=== PATIENT | male | born 1980 | race African-American/Black ===

== ENCOUNTER 2016-07-15 18:48 | Emergency (ER) | payer BC, OTHER ==
--- NOTE | 2016-07-15 19:40 | ERRECORD ---
[facility] EMERGENCY RECORD HPI EXTREMITY (19:30 [facility]) CHIEF COMPLAINT: Patient presents for evaluation of swelling, to the left foot. HISTORIAN: History provided by patient, 36M presents with complaints of left foot swelling that he noticed today. Has had a new pair of workboots lately. Family is concerned it is related to his DM as he doesn't check his sugar often. LOCATION: Symptoms are localized, most severe in the left foot. TIME COURSE: Patient unable to describe onset of symptoms. ROS (19:32 [facility]) CONSTITUTIONAL: Negative constitutional review of systems, Historian denies chills, denies fever. ENT: Negative ears, nose, throat review of systems, Historian denies rhinorrhea, denies sore throat. CARDIOVASCULAR: Negative cardiovascular review of systems, Historian denies chest pain, reports edema, denies palpitations. very mild LLE edema over dorsum of foot. RESPIRATORY: Negative respiratory review of systems, Historian denies cough, denies shortness of breath. GI: Negative gastrointestinal review of systems, Historian denies abdominal pain, denies constipation, denies diarrhea, denies nausea, denies vomiting. MUSCULOSKELETAL: Negative musculoskeletal review of systems, Historian denies back pain, denies fall, denies injury, denies neck pain. SKIN: Negative skin review of systems, Historian denies rash, denies skin changes. NEUROLOGIC: Negative neurologic review of systems, Historian denies headache. PAST MEDICAL HISTORY (19:24 EMAT) MEDICAL HISTORY: Notes: diabetes. MALE SURGICAL HISTORY: Patient has no surgical history. PSYCHIATRIC HISTORY: No previous psychiatric history. SOCIAL HISTORY: Patient denies alcohol use, Patient denies drug use, Patient has no smoking history. FAMILY HISTORY: Family istory is not significant. KNOWN ALLERGIES lisinopril: Reaction: Anaphylaxis, Severity: Moderate, Source: Patient None CURRENT MEDICATIONS metFORMIN: TABLET, EXTENDED RELEASE 24 HR : Strength - 1,000 mg : ORAL Patient Dose: Unknown. (18:59 EMAT) amLODIPine: TABLET : Strength - 5 mg : ORAL &a-1R&a+25V*p+0X*s3547P*c202B*c15G*c2P*p-0X&a-25V&a+1R Name: Rebecca Tang : 1980 M36 MedRec: [id number] AcctNum: [id number] Prepared: Dionna Jul 15, 2016 19:42 by Interface Page 1 of 3 pMD [facility] EMERGENCY RECORD Patient Dose: Unknown. (18:59 EMAT) hydrochlorothiazide: TABLET : Strength - 25 mg : ORAL Patient Dose: Unknown. (19:00 EMAT) simvastatin: TABLET : Strength - 40 mg : ORAL Patient Dose: Unknown. (19:00 EMAT) VITAL SIGNS VITAL SIGNS: BP: 144/93, Pulse: 79, Resp: 18, Temp: 98.1 (Oral), Pain: 0, O2 sat: 96 on Room Air, Time: 07/15/2016 18:53. (18:53 EMAT) Pulse: 70, Resp: 18, Pain: 0, O2 sat: 98 on r/a, Time: 07/15/2016 19:27. (19:27 EMAT) PHYSICAL EXAM (19:32 [facility]) CONSTITUTIONAL: Vital signs reviewed, Patient afebrile, Pulse normal, Blood pressure normal, Respiratory rate normal, Patient appears non toxic, Patient appears pain free, Patient alert and oriented to person, place and time. NECK: Neck exam normal, Neck exam included findings of normal range of motion, Trachea midline, no meningeal signs, no cervical adenopathy, no tenderness. RESPIRATORY CHEST: Respiratory and chest exam normal, Respiratory exam included findings of no respiratory distress, Breath sounds clear. CARDIOVASCULAR: Cardiovascular assessment normal, Cardiovascular exam included findings of heart rate regular rate and rhythm, Heart sounds normal. ABDOMEN MALE: Abdominal exam included findings of abdomen nontender, Bowel sounds normal, no distension, no mass, no pulsatile masses, no peritoneal signs, no rigidity, no guarding, no rebound, Rovsing's sign absent. BACK: Back exam normal, Back exam included findings of normal inspection, range of motion normal, no tenderness. LOWER EXTREMITY: Lower extremity exam included findings of inspection abnormal, Range of motion normal, Motor strength normal, Sensation intact, Posterior tibial pulse normal, Pedal pulse normal, Valentin's negative, distal pulses intact, capillary refill less than 2 seconds, distal motor intact, distal sensory intact, Edema present, to the left lower extremity, +1, very mild LLE edema over dorsum of left foot. NEURO: Neuro exam normal, Neuro exam findings include patient oriented to person, place and time, Speech normal, Gait normal. SKIN: Skin exam normal, Skin exam included findings of skin warm, dry, and normal in color, no rash. DOCTOR NOTES (19:[address] [facility]) TEXT: patient presented with concern for LLE foot swelling. No calf tenderness, nothing concerning for DVT or heart/kidney etiology in history or on exam. Monofilament exam normal. Likely &a-1R&a+25V*p+0X*i4893J*c202B*c15G*c2P*p-0X&a-25V&a+1R Name: Rebecca Tang : 1980 M36 MedRec: [id number] AcctNum: [id number] Prepared: Dionna Jul 15, 2016 19:42 by Interface Page 2 of 3 pMD [facility] EMERGENCY RECORD secondary to compressive shoes at work with excess time spent standing. No further workup necessary. encouraged closer blood glucose monitoring. PATIENT STATUS: Patient has improved since arrival to emergency department. PATIENT PLAN: The patient will be discharged, The patient will follow up with primary care physician. PROBLEM LIST No recorded problems DIAGNOSIS (19:[address] [facility]) FINAL: PRIMARY: LOCALIZED EDEMA. PRESCRIPTION No recorded prescriptions DISPOSITION PATIENT: Disposition Type: Discharge, Disposition: *Discharge Home. (19:15 [facility]) Patient left the department. (19:28 EMAT) Back: EMAT=STEPHANIE Garcia, Cristino [facility]=MD Beatrice, Dion &a-1R&a+25V*p+0X*r1316V*c202B*c15G*c2P*p-0X&a-25V&a+1R Name: Rebecca Tang : 1980 M36 MedRec: [id number] AcctNum: [id number] Prepared: Dionna Jul 15, 2016 19:42 by Interface Page 3 of 3 pMD MTDD
--- NOTE | 2016-07-15 19:45 | PICIS ---
[facility] EMERGENCY RECORD TRIAGE ([place] Jul 15, 2016 18:58 EMAT) TRIAGE NOTES: started today. Pt w/ hx of diabetes. ([place] Jul 15, 2016 18:58 EMAT) PATIENT: NAME: Rebecca Tang, AGE: 36, GENDER: male, : Sat 1980, TIME OF GREET: SatJul 15, 2016 18:48, PREFERRED LANGUAGE: [place], ETHNICITY: Not or , ECODE BILLING MAP: [facility], SSN: [id number], Zip Code: [address], KG WEIGHT: 108.86 (est.), PHONE: , , , PERSON ID: [id number], PCP: DO JENKINS KRISTEL. ([place] Jul 15, 2016 18:58 EMAT) COMPLAINT: foot swelling. ([place] Jul 15, 2016 18:58 EMAT) ADMISSION: URGENCY: 3 Urgent, ADMISSION SOURCE: Home, TRANSPORT: CAR, BED: TRIAGE. ([place] Jul 15, 2016 18:58 EMAT) ASSESSMENT: Assessment: lrft foot swelling, Location: started today. (19:01 EMAT) PAIN: No complaint of pain. (19:01 EMAT) IMMUNIZATIONS: Flu vaccine not up to date, Tetanus not up to date, Pneumococcal vaccine not up to date. (19:01 EMAT) SIRS SCORING: Heart Rate 55-109 (0), Temp range 96.8-101.1 (0), respiratory rate 12-24 (0), Mental Status altered: no (0), Total SIRS Score 0, Infection or Suspected Infection: No. (19:01 EMAT) PROVIDERS: TRIAGE NURSE: Cristino Garcia RN. ([place] Jul 15, 2016 18:58 EMAT) VITAL SIGNS: BP 144/93, Pulse 79, Resp 18, Temp 98.1, (Oral), Pain 0, O2 Sat 96, on Room Air, Time 07/15/2016 18:53. (18:53 EMAT) KNOWN ALLERGIES lisinopril: Reaction: Anaphylaxis, Severity: Moderate, Source: Patient None CURRENT MEDICATIONS metFORMIN: TABLET, EXTENDED RELEASE 24 HR : Strength - 1,000 mg : ORAL Patient Dose: Unknown. (18:59 EMAT) amLODIPine: TABLET : Strength - 5 mg : ORAL Patient Dose: Unknown. (18:59 EMAT) hydrochlorothiazide: TABLET : Strength - 25 mg : ORAL Patient Dose: Unknown. (19:00 EMAT) simvastatin: TABLET : Strength - 40 mg : ORAL Patient Dose: Unknown. (19:00 EMAT) VITAL SIGNS VITAL SIGNS: BP: 144/93, Pulse: 79, Resp: 18, Temp: 98.1 (Oral), Pain: 0, O2 sat: 96 on Room Air, Time: 07/15/2016 18:53. (18:53 EMAT) Pulse: 70, Resp: 18, Pain: 0, O2 sat: 98 on r/a, Time: 07/15/2016 19:27. &a-1R&a+25V*p+0X*j8202K*c202B*c15G*c2P*p-0X&a-25V&a+1R Name: Rebecca Tang : 1980 M36 MedRec: [id number] AcctNum: [id number] Prepared: Dionna Jul 15, 2016 19:42 by Interface Page [address] [facility] EMERGENCY RECORD (19:27 EMAT) NURSING ASSESSMENT: FOCUSED (19:10 EMAT) CONSTITUTIONAL: Patient arrives ambulatory, Gait steady, History obtained from patient, Patient appears comfortable, Patient cooperative, Patient alert, Oriented to person, place and time, Skin warm, Skin dry, Skin normal in color, Mucous membranes pink, Mucous membranes moist, Patient is well-groomed. PAIN: denies. EYES: Focused eye assessment finding include pupils equally round and reactive to light. NEURO: Focused neuro assessment findings include patient alert, cooperative, No facial droop noted, Speech coherent. GCS: Eye opening: (4) - Spontaneous, Verbal: (5) - Oriented/conversive, Motor: (6) - Obeys commands/Spontaneous, GCS Total: 15. RESPIRATORY: Focused respiratory assessment findings include breath sounds clear. ABDOMEN: Focused abdominal assessment findings include abdomen soft. GENITOURINARY: Focused genitourinary assessment not applicable. MUSCULOSKELETAL: Focused musculoskeletal assessment findings include normal range of motion, Notes: c/o left foot swelling. no edema noted. no deformity. sensation intact. pulses intact. LACERATION: Focused laceration assessment not applicable. SAFETY: Side rails up, Cart/Stretcher in lowest position, Family at bedside, Call light within reach, Hospital ID band on. NURSING PROCEDURE: DISCHARGE NOTE (19:27 EMAT) DISCHARGE: Patient discharged to home, ambulating without assistance, family driving, accompanied by //partner, Summary of Care printed/ provided, Patient requested and was provided an electronic copy of Discharge Instructions, Discharge instructions given to patient, Simple or moderate discharge teaching performed, Above person(s) verbalized understanding of discharge instructions and follow-up care. VITAL SIGNS: Pulse: 70, Resp: 18, Pain: 0, O2 sat: 98, on: r/a. HPI EXTREMITY (19:30 [facility]) CHIEF COMPLAINT: Patient presents for evaluation of swelling, to the left foot. HISTORIAN: History provided by patient, 36M presents with complaints of left foot swelling that he noticed today. Has had a new pair of workboots lately. Family is concerned it is related to his DM as he doesn't check his sugar often. LOCATION: Symptoms are localized, most severe in the left foot. TIME COURSE: Patient unable to describe onset of symptoms. ROS (19:32 [facility]) CONSTITUTIONAL: Negative constitutional review of systems, &a-1R&a+25V*p+0X*y2391N*c202B*c15G*c2P*p-0X&a-25V&a+1R Name: Rebecca Tang : 1980 M36 MedRec: [id number] AcctNum: [id number] Prepared: Dionna Jul 15, 2016 19:42 by Interface Page [address] [facility] EMERGENCY RECORD Historian denies chills, denies fever. ENT: Negative ears, nose, throat review of systems, Historian denies rhinorrhea, denies sore throat. CARDIOVASCULAR: Negative cardiovascular review of systems, Historian denies chest pain, reports edema, denies palpitations. very mild LLE edema over dorsum of foot. RESPIRATORY: Negative respiratory review of systems, Historian denies cough, denies shortness of breath. GI: Negative gastrointestinal review of systems, Historian denies abdominal pain, denies constipation, denies diarrhea, denies nausea, denies vomiting. MUSCULOSKELETAL: Negative musculoskeletal review of systems, Historian denies back pain, denies fall, denies injury, denies neck pain. SKIN: Negative skin review of systems, Historian denies rash, denies skin changes. NEUROLOGIC: Negative neurologic review of systems, Historian denies headache. PAST MEDICAL HISTORY (19:24 EMAT) MEDICAL HISTORY: Notes: diabetes. MALE SURGICAL HISTORY: Patient has no surgical history. PSYCHIATRIC HISTORY: No previous psychiatric history. SOCIAL HISTORY: Patient denies alcohol use, Patient denies drug use, Patient has no smoking history. FAMILY HISTORY: Family istory is not significant. PHYSICAL EXAM (19:32 [facility]) CONSTITUTIONAL: Vital signs reviewed, Patient afebrile, Pulse normal, Blood pressure normal, Respiratory rate normal, Patient appears non toxic, Patient appears pain free, Patient alert and oriented to person, place and time. NECK: Neck exam normal, Neck exam included findings of normal range of motion, Trachea midline, no meningeal signs, no cervical adenopathy, no tenderness. RESPIRATORY CHEST: Respiratory and chest exam normal, Respiratory exam included findings of no respiratory distress, Breath sounds clear. CARDIOVASCULAR: Cardiovascular assessment normal, Cardiovascular exam included findings of heart rate regular rate and rhythm, Heart sounds normal. ABDOMEN MALE: Abdominal exam included findings of abdomen nontender, Bowel sounds normal, no distension, no mass, no pulsatile masses, no peritoneal signs, no rigidity, no guarding, no rebound, Rovsing's sign absent. BACK: Back exam normal, Back exam included findings of normal inspection, range of motion normal, no tenderness. LOWER EXTREMITY: Lower extremity exam included findings of inspection abnormal, Range of motion normal, Motor strength normal, Sensation intact, Posterior tibial pulse normal, Pedal pulse &a-1R&a+25V*p+0X*c5435F*c202B*c15G*c2P*p-0X&a-25V&a+1R Name: Rebecca Tang : 1980 M36 MedRec: [id number] AcctNum: [id number] Prepared: Dionna Jul 15, 2016 19:42 by Interface Page [address] [facility] EMERGENCY RECORD normal, Valentin's negative, distal pulses intact, capillary refill less than 2 seconds, distal motor intact, distal sensory intact, Edema present, to the left lower extremity, +1, very mild LLE edema over dorsum of left foot. NEURO: Neuro exam normal, Neuro exam findings include patient oriented to person, place and time, Speech normal, Gait normal. SKIN: Skin exam normal, Skin exam included findings of skin warm, dry, and normal in color, no rash. EVENTS TRANSFER: Triage to Emergency Triage. (Dionna Jul 15, 2016 18:58 EMAT) Emergency Triage to Emergency Room -03. (19:06 [facility]IL) Removed from Emergency Emergency Room -03. (19:28 EMAT) DOCTOR NOTES (19:33 [facility]) TEXT: patient presented with concern for LLE foot swelling. No calf tenderness, nothing concerning for DVT or heart/kidney etiology in history or on exam. Monofilament exam normal. Likely secondary to compressive shoes at work with excess time spent standing. No further workup necessary. encouraged closer blood glucose monitoring. PATIENT STATUS: Patient has improved since arrival to emergency department. PATIENT PLAN: The patient will be discharged, The patient will follow up with primary care physician. PROBLEM LIST No recorded problems DIAGNOSIS (19:15 [facility]) FINAL: PRIMARY: LOCALIZED EDEMA. DISPOSITION PATIENT: Disposition Type: Discharge, Disposition: *Discharge Home. (19:15 [facility]) Patient left the department. (19:28 EMAT) INSTRUCTION (19:15 [facility]) DISCHARGE: PEDAL EDEMA. FOLLOWUP: DO JENKINS KRISTEL, [facility], [address] [place] [address], [phone]. SPECIAL: Check your blood sugar. Loosen your shoes. Follow up with Dr. Jenkins for diabetes management. PRESCRIPTION No recorded prescriptions IMAGING (19:21 [facility]) *DISCHARGE INSTRUCTIONS RECEIPT: Image captured from scanner. &a-1R&a+25V*p+0X*s5483B*c202B*c15G*c2P*p-0X&a-25V&a+1R Name: Rebecca Tang : 1980 M36 MedRec: [id number] AcctNum: [id number] Prepared: Dionna Jul 15, 2016 19:42 by Interface Page [address] [facility] EMERGENCY RECORD *SUPPLY CHARGE SHEET: Image captured from scanner. ADMIN (19:34 [facility]) DIGITAL SIGNATURE: MD Barron Jason. Back: EMAT=STEPHANIE Garcia, Cristino JJAC=MD Barron Jason MVIL=STEPHANIE Krueger, Sola &a-1R&a+25V*p+0X*u6237M*c202B*c15G*c2P*p-0X&a-25V&a+1R Name: Rebecca Tang : 1980 M36 MedRec: [id number] AcctNum: [id number] Prepared: Dionna Jul 15, 2016 19:42 by Interface Page 5 of 5 pMD MTDD
== END 2016-07-15 19:15 | disposition home or self-care (01) ==
LOC: BURERS 18:48
DX: R60.0 Localized edema (principal); E11.9 Type 2 diabetes mellitus without complications; Z79.84 Long term (current) use of oral hypoglycemic drugs; Z79.899 Other long term (current) drug therapy
CPT/HCPCS: 99283

== ENCOUNTER 2019-03-08 17:58 | Emergency (ER) | payer BC, OTHER ==
[2019-03-08] MEDS ORDERED: Ketorolac Tromethamine 60 MG/2 ML VIAL ONE (18:20)
== END 2019-03-08 18:24 | disposition home or self-care (01) ==
LOC: BURERS 17:58
DX: S46.811A Strain of other muscles, fascia and tendons at shoulder and upper arm level, right arm, initial encounter (principal); E11.9 Type 2 diabetes mellitus without complications; I10 Essential (primary) hypertension; E78.00 Pure hypercholesterolemia, unspecified; Z79.899 Other long term (current) drug therapy; Z79.84 Long term (current) use of oral hypoglycemic drugs; Z79.82 Long term (current) use of aspirin; V49.9XXA Car occupant (driver) (passenger) injured in unspecified traffic accident, initial encounter
CPT/HCPCS: 96372; 99283; J1885

== ENCOUNTER 2023-07-04 08:23 | Emergency (ER) | payer OTHER | END 2023-07-04 09:17 | disposition home or self-care (01) | LOC: BURERS 08:23 | DX: J01.90 Acute sinusitis, unspecified (principal); E11.9 Type 2 diabetes mellitus without complications; I10 Essential (primary) hypertension; E78.00 Pure hypercholesterolemia, unspecified; Z79.4 Long term (current) use of insulin; Z79.84 Long term (current) use of oral hypoglycemic drugs; Z79.82 Long term (current) use of aspirin; Z79.899 Other long term (current) drug therapy | CPT/HCPCS: 71045 ==

== ENCOUNTER 2023-08-15 01:40 | Emergency (ER) | payer OTHER ==
[2023-08-15] MEDS ORDERED: Tetracaine 0.5% PF 4 ML BOT ONE (01:46)
[2023-08-15] MEDS ORDERED: Tobramycin 0.3% Ophth Susp 5 ml Bottle ONE (01:55)
== END 2023-08-15 02:03 | disposition home or self-care (01) ==
LOC: BURERS 01:40
DX: S05.02XA Injury of conjunctiva and corneal abrasion without foreign body, left eye, initial encounter (principal); I10 Essential (primary) hypertension; E11.9 Type 2 diabetes mellitus without complications; X58.XXXA Exposure to other specified factors, initial encounter
CPT/HCPCS: 99282